=== PATIENT | male | born 1955 | race Caucasian/White ===

== ENCOUNTER 2016-06-10 16:31 | Inpatient (IN) | payer OTHER ==
[~2016-06-10] VITALS: Ht 180.3 cm; Wt 88.4 kg
[2016-06-10] VITALS (8 sets, daily range): BP systolic 109–146; BP diastolic 58–82; PULSE 69–124; RESP 13–20; O2SAT 94–98
[2016-06-10] MEDS ORDERED: Ondansetron 2 mg/mL 2 mL Inj ONE ×2 (17:37→22:37)
[2016-06-10 17:51] LABS: BASOPHILS % (AUTO) 0.2 % (0-3); EOSINOPHILS % (AUTO) 0 % (0-5); MONOCYTES % (AUTO) 6.1 % (4-12); Mean Corpuscular Volume 90.9 fL (81-100); Platelet Count 203 bil/L (150-400)
[2016-06-10 18:12] LABS: Magnesium 1.6 mg/dL (1.6-2.6)
--- NOTE | 2016-06-10 18:30 | ED.REPORT ---
HPI-Abd Pain M 40 and Over Date of Service June 10, 2016 ED Provider: Randell Lux MD A 60 year old male with a history of NIDDM presents to the ED complaining of abdominal pain. The pain has been present for four days and in concentrated in the LLQ. The pt characterizes the pain as a "worsening ache with spasms" that ranges between sharp and dull. He began vomiting after eating yesterday and has not been able to consume anything but water and Gatorade since. He last drank these at 15:00 today. The pt has not had a bowel movement in two days, though he denies dysuria. Nursing Notes Stated Complaint: RIGHT LOWER QUADRANT PAIN Chief Complaint: Male Abdominal Pain Nursing Notes Reviewed: Yes Allergies: Coded Allergies: No Known Allergies (Unverified , 06/10/16) Scheduled Aspirin (Aspirin) 81 Mg Tablet 81 MG PO DAILY Lisinopril (Lisinopril) 5 Mg Tablet 5 MG PO HS Metformin (Metformin) 850 Mg Tablet 850 MG PO BID Multivitamin (Once Daily) 1 Each Tablet 1 EACH PO DAILY Simvastatin (Simvastatin) 40 Mg Tablet 40 MG PO HS Scheduled PRN Cyclobenzaprine (Cyclobenzaprine) 10 Mg Tablet 10 MG PO DAILY PRN PRN For Spasm Sildenafil Citrate (Sildenafil) 20 Mg Tablet 20 MG PO prn PRN PRN for sexual activity General Time Seen by MD: 18:24 Chief Complaint Abdominal pain Hx Obtained From: Patient Arrived By: Walk-in Sudden in Onset?: No Onset Occurred: 4 days ago Symptom Duration: Since onset Recent Healthcare: No recent hospitalization, Recent doctor visit Similar Sx Previous: No Past Medical History Past Medical History NIDDM Past Surgical History none reported denies abdominal surgery Smoking History Current Every Day Smoker Social History Alcohol Use: "Social" Drug Use: THC Other Social History: Good social support, Ambulatory Status Independent Review of Systems Constitutional: Denies: Fever Respiratory: Denies: Non-productive cough Cardiovascular: Denies: Chest pain GI: Reports: Abdominal pain, Constipation, Nausea, Vomiting Male: Denies Dysuria Musculoskeletal: Denies: Back pain, Neck pain Complete sys rev & neg: except as marked. Physical Exam Initial Vital Signs Vital Signs (First) Date Time Temp Pulse Resp B/P Pulse Ox O2 Delivery O2 Flow Rate FiO2 06/10/16 16:42 37.7 124 18 146/82 95 Initial VS: Reviewed General/Constitutional: Awake, Alert Respiratory / Chest: Atraumatic, Breath sounds NL, Breath sounds = bilat, No respiratory distress Cardiovascular: Heart rate NL, Regular rhythm, Heart sounds NL Abdomen: Atraumatic, Soft, Non-tender, BS normoactive Back: Atraumatic, Full range of motion Head / Eyes: Atraumatic, Normocephalic, PERRL, EOMI ENT: Atraumatic, Airway patent, Mucous membranes moist Skin: Atraumatic, Color NL, No rash, Warm, Dry Neurologic: Oriented X3, Speech NL, No motor deficits, No sensory deficits Neck: Atraumatic, Supple, Full range of motion Upper Extremity / MS: Atraumatic, Full range of motion Lower Extremity / Pelvis / MS: Atraumatic, Full range of motion Psychiatric: Affect NL, Mood NL Interpretation & Diagnostics Interpretation & Diagnostics: Abdomen CT: IMPRESSION: 1. Severe acute appendicitis, possibly ruptured given the surrounding fluid. Findings discussed with Dr. Lux on 06.10.16 at 1910 hrs. 2. Mildly distended small bowel loops, consistent with ileus. Dictated by: Zoie Jarrell M.D. on 06/10/2016 at 19:10 Approved by: Zoie Jarrell M.D. on 06/10/2016 at 19:13 Lab Results Interpretation Result Diagram: 06/10/16 1723 06/10/16 1723 Test 06/10/16 17:23 06/10/16 17:41 06/10/16 18:35 White Blood Count 19.8th/mm3 (3.8-10.1) Red Blood Count 5.06mil/mm3 (4.40-5.80) Hemoglobin 15.7g/dL (13.8-17.2) Hematocrit 46.0% (41.0-50.0) Mean Corpuscular Volume 90.9fL (81-100) Mean Corpuscular Hemoglobin 31.0pg (27.0-35.0) Mean Corpuscular Hemoglobin Concent 34.1% (32.0-37.0) Red Cell Distribution Width 12.1% (12.3-15.4) Platelet Count 203bil/L (150-400) Neutrophils (%) (Auto) 91.0% (40-74) Lymphocytes (%) (Auto) 2.2% (14-46) Monocytes (%) (Auto) 6.1% (4-12) Eosinophils (%) (Auto) 0% (0-5) Basophils (%) (Auto) 0.2% (0-3) Hold Purple Top Tube Received (Received) Hold Blue Top Tube Received (Received) Sodium Level 135mEq/L (134-144) Potassium Level 3.8mEq/L (3.5-5.2) Chloride Level 94mEq/L (97-108) Carbon Dioxide Level 22mmol/L (18-29) Blood Urea Nitrogen 16mg/dL (6-24) Creatinine 0.89mg/dL (0.76-1.27) Estimat Glomerular Filtration Rate 93mL/min (>59) Glucose Level 237mg/dL (60-99) Lactic Acid Level 1.8mmol/L (0.4-2.0) Calcium Level 9.5mg/dL (8.5-10.1) Magnesium Level 1.6mg/dL (1.6-2.6) Total Bilirubin 1.0mg/dL (0.0-1.2) Aspartate Amino Transf (AST/SGOT) 15U/L (0-50) Alanine Aminotransferase (ALT/SGPT) 17U/L (0-44) Alkaline Phosphatase 48U/L (25-150) Total Protein 7.5g/dL (6.4-8.4) Albumin 4.0g/dL (3.4-5.0) Lipase 15U/L (13-60) Hold Red Top Tube Received (Received) Hold [place] Top Tube Received (Received) Hold [place] Top Tube Received (Received) Hold Urine Received (Received) Urine Color Yellow (YELLOW) Urine Appearance Clear (CLEAR,HAZY) Urine pH 6.0 (5.0-8.0) Urine Specific [place] 1.030 (1.003-1.035) Urine Protein 300mg/dL (NEG,TRACE) Urine Glucose (UA) 100mg/dL (NEGATIVE) Urine Ketones 40mg/dL (NEGATIVE) Urine Occult Blood Moderate (NEGATIVE) Urine Nitrite Negative (NEGATIVE) Urine Bilirubin Negative (NEGATIVE) Urine Urobilinogen 1.0mg/dL (NORMAL) Urine Leukocyte Esterase Negative (NEGATIVE) Urine RBC 0-2/hpf (0-2) Urine WBC 0-5/hpf (0-5) Urine Epithelial Cells Few/hpf (NONE-MOD) Urine Crystals None seen (NONE SEEN) Urine Bacteria Few/hpf (NONE-FEW) Urine Hyaline Casts None/lpf (NONE) Urine Granular Casts None seen (NONE SEEN) Urine Waxy Casts None seen (NONE SEEN) Urine Red Blood Cell Casts None seen (NONE SEEN) Urine White Blood Cell Casts None seen (NONE SEEN) Urine Mucus Present (None Seen) Urine Trichomonas None seen (NONE SEEN) Urine Yeast None (NONE SEEN) Urinalysis Comment None Urine Culture Reflexed Not indicated Re-Eval/Medical Decision Med Decision/Clinical Course Presented ill appearing with peritoneal findings on exam. IV NSx2L, IV zosyn started, surgery consulted. Source of Hx: Old records Time of Eval: 19:16 Patient Status: Condition improved Re-Evaluation/Progress Note: Pt rechecked, whose pain has improved. Radiology results and diagnosis are discussed, as well as the need for admission for surgery. The pt understands and agrees with the plan. All questions are addressed at this time. Consultation : Referral / Consult Name: David Escudero MD Consulted With: Surgeon Call Returned at: 19:10 Bakery Clerk: Agrees with eval, Agrees with plan Note: Spoke with Dr. Escudero, surgeon, regarding pt's case. Dr. Escudero agrees with the evaluation and agrees to admit the pt for surgery. Counseled Regarding: Diagnosis, Lab results, Need for admission Discharge & Departure Primary Impression: Acute appendicitis Acute appendicitis type: unspecified acute appendicitis type Qualified Code: K35.80 - Unspecified acute appendicitis Additional Impression: Sepsis Sepsis type: sepsis due to unspecified organism Qualified Code: A41.9 - Sepsis, unspecified organism Disposition: ADMITTED TO HOSPITAL Vital Signs - All Vital Signs Date Time Temp Pulse Resp B/P Pulse Ox O2 Delivery O2 Flow Rate FiO2 06/10/16 16:42 37.7 124 18 146/82 95 )( All Prior VS Reviewed: Yes Condition: Stable Referrals: Ayden Kirkland DO (PCP) Brandieibjorge Attestation Portions of this note were transcribed by William Avilez. I, Dr. Lux personally performed the history, physical exam and medical decision-making; I reviewed and confirmed the accuracy of the information in the transcribed note. Signed by: Bita Shields, 06/10/16 and 4. copies to: Ayden Kirkland, Randell Greene MD June 10, 2016 18:30 WILLIAM AVILEZ June 10, 2016 18:38
[2016-06-10] MEDS ORDERED: 0.9% Sodium Chloride 1,000 ML IV ONE (18:35)
[2016-06-10] MEDS ORDERED: Ondansetron 2 mg/mL 2 mL Inj IVPUSH PRN ×2 (18:35→19:35)
[2016-06-10] MEDS ORDERED: HYDROmorphone 0.5 mg/0.5 mL iSecure Syringe IVPUSH PRN (18:35)
[2016-06-10 18:52] LABS: APPEARANCE,URINE CLEAR (CLEAR,HAZY); COLOR,URINE YELLOW (YELLOW); OCCULT BLOOD,URINE MODERATE (NEGATIVE)
--- NOTE | 2016-06-10 19:14 | DRSVH ---
PROCEDURE: CT ABDOMEN AND PELVIS WITH CONTRAST ([id number]) INDICATIONS: rlq pain TECHNIQUE: After the administration of intravenous contrast, 5 mm thick sections acquired from the diaphragm to the symphysis. 5 mm coronal and sagittal reformats were acquired. For radiation dose reduction, the following was used: automated exposure control, adjustment of mA and/or kV according to patient siz e. COMPARISON: None. FINDINGS: Image quality: Excellent. ABDOMEN: Lung bases: Lung bases are clear. Heart size is normal. Solid organs: Liver and spleen are normal in size and enhancement. Gallbladder is within normal magana its. Biliary system is non dilated. Pancreas enhances normally. No adrenal nodules. Kidneys demon strate normal size and enhancement, without hydronephrosis. Peritoneum and bowel: Mildly distended small bowel loops are present within the left hemiabdomen. Prosper wel loops demonstrate otherwise normal wall thickness and caliber. The appendix is distended and flui d filled. Appendicolith is present at the appendiceal base. Severe fatty stranding and small amount o f fluid surrounds the appendix. Small amount of fluid within the right perirenal space. Nodes and vessels: No retroperitoneal or mesenteric adenopathy by size criteria. Aorta and inferior vena cava are normal in size. Miscellaneous: No ventral hernias. PELVIS: Genitourinary: Bladder wall thickness is normal. Miscellaneous: No inguinal hernias or adenopathy. Bones: No suspicious bony lesions. No vertebral body compression fractures. IMPRESSION: 1. Severe acute appendicitis, possibly ruptured given the surrounding fluid. Findings discussed with Dr. Lux on 06.10.16 at 1910 hrs. 2. Mildly distended small bowel loops, consistent with ileus. Dictated by: Zoie Jarrell M.D. on 06/10/2016 at 19:10 Approved by: Zoie Jarrell M.D. on 06/10/2016 at 19:13
[2016-06-10] MEDS ORDERED: Piperacillin-Tazo 3.375 Gm Inj 3.375 GM in Dextrose 5% Minibag Plus 50 ML IV ONE (19:15)
[2016-06-10] MEDS ORDERED: Lactated Ringer's 1,000 ML IV SCH (19:33)
[2016-06-10] MEDS ORDERED: Lactated Ringer's 500 ML IV PRN (19:33)
[2016-06-10] MEDS ORDERED: fentaNYL-PF 50 mCg/mL 2 mL Inj IVPUSH PRN (19:35)
[2016-06-10] MEDS ORDERED: Labetalol 5 mg/mL 4 mL Inj IV PRN (19:35)
[2016-06-10] MEDS ORDERED: hydrALAZINE 20 mg/mL Inj IVPUSH PRN (19:35)
[2016-06-10] MEDS ORDERED: HYDROmorphone 1 mg/mL Inj IVPUSH PRN (19:35)
[2016-06-10] MEDS ORDERED: MetoCLOpramide 5 mg/mL 2 mL Inj IVPUSH PRN (19:35)
[2016-06-10] MEDS ORDERED: Dexamethasone 4 mg/mL Inj IVPUSH PRN (19:35)
[2016-06-10] MEDS ORDERED: Phenylephrine 10,000 mCg/mL Inj IVPUSH PRN (19:35)
[2016-06-10] MEDS ORDERED: EPHEDrine Sulfate 50 mg/mL Inj IVPUSH PRN (19:35)
--- NOTE | 2016-06-10 20:10 | PCM.HPSURG ---
Subjective Date of Service: June 10, 2016 Referring Provider: Admitting Physician: Primary Care Physician: Ayden Kirkland DO Attending Physician: Chief Complaint Appendicitis with possible perforation History of Present Illness Mr. Carvalho is a 60-year-old male with past medical history NIDDM, HTN and HLD presented to the ED via POV secondary to 4 days of progressive right lower quadrant abdominal pain with associated nausea vomiting fevers. Symptoms started 4 days ago with no specific inciting incident, progressively worsened with increasing fevers nausea and projectile vomiting for the last 2 days, denies hematemesis. Patient states last bowel movement 2 days prior to admission and was normal no hematochezia. He has not been able to eat food 2 days and last liquid intake was approximately 1500 today water and Gatorade. Denies chest pain, shortness of breath, headache. A comprehensive review of systems was conducted with the patient and found to be negative except as above in the history of present illness. In the ED: WBC 19.8 - 91% neutrophils, lactic acid 1.8, glucose 237. Temperature 37.7, tachycardic 124 blood pressure 146/[address]: Severe acute appendicitis, possibly ruptured given the surrounding fluid. Mildly distended small bowel loops, consistent with ileus. Past medical history: NIDDM, HTN and HLD. Chronic low back pain Past surgical history: Denies any pertinent surgery history. Has never been intubated, has never undergone anesthesia has never had any surgeries. Allergies: No known drug allergies Medications: Aspirin 81 mg, lisinopril - unknown dose, statin - unknown dose, metformin 850 mg twice a day Family history: Grandfather "10 heart attacks", father 4 way bypass age 74 secondary to MS, mother alive and mostly healthy with pacemaker. No family history of colon cancer. Social history: Smokes one cigar per week, EtOH 2-3 beers per week, daily marijuana use. Lives in town [place] with , one grown child currently traveling in [place]. Works as a marketing project specialist. Allergy Allergies: Coded Allergies: No Known Allergies (Unverified , 06/10/16) Social History Hx Alcohol Use: Yes Alcoholic Drinks Per Day: 1 weekly Hx Substance Use: Yes (thc occasionally) PMH Other History Diabetes: Yes (NIDDM) Social History Hx Alcohol Use: YesAlcoholic Drinks Per Day: 1 weeklyHx Substance Use: Yes ( thc occasionally) Smoking Status: Current Every Day Smoker H&P Surgical Exam Exam Diagnostics: . CT ABDOMEN AND PELVIS WITH CONTRAST IMPRESSION: 1. Severe acute appendicitis, possibly ruptured given the surrounding fluid. Findings discussed with Dr. Lux on 06.10.16 at 1910 hrs. 2. Mildly distended small bowel loops, consistent with ileus. Dictated by: Zoie Jarrell M.D. on 06/10/2016 at 19:10 Additional Information: General: Age-appropriate adult male laying in ER bed in moderate distress, well- developed, well-nourished, appropriately interactive. at bedside HEENT: Normocephalic, atraumatic. External ears without defect. Pupils equal, round, and reactive to light and accommodation. Anicteric sclerae, moist conjunctivae, and no lid lag. Neck: Supple with full range of motion. No jugular venous distension. Cardiovascular: Regular rate and rhythm with no murmurs, rubs, or gallops appreciated Pulmonary: Clear to auscultation bilaterally with no crackles, wheezes, or rhonchi. Normal respiratory effort with no use of accessory muscles. Abdomen: Bowel tones present. Tender to palpation right lower quadrant, positive rebound tenderness. Right lower quadrant firm to palpation. Extremities: No edema appreciated. Skin: Normal temperature, turgor, and texture Neurological: Cranial nerves grossly intact. Psychiatric: Normal mood and affect. Alert and oriented to person, place, and time. Assessment & Plan Assessment Assessment & Plan Appendicitis with possible perforation - CT imaging confirms appendicitis with suspicion of rupture secondary to surrounding fluid - Leukocytosis, hyperthermia - IV fluids - Zosyn given in ED - Patient consented to laparoscopic appendectomy Resuscitation Status: CPR: Attempt Resuscitation Attending Statement: I personally interviewed and examined the pt, and I agree with Dr. Alex's assessment and plan. IV abx and proceed to lap appendectomy. LATOYA ALEX DO June 10, 2016 20:10 David Escudero MD June 12, 2016 14:31
[2016-06-10] MEDS ORDERED: SIMV40TA5 PO (20:22)
[2016-06-10] MEDS ORDERED: LISI-571 PO (20:22)
[2016-06-10] MEDS ORDERED: CYCL10TA9 PO (20:22)
[2016-06-10] MEDS ORDERED: MULT-666 PO (20:22)
[2016-06-10] MEDS ORDERED: ASPI-973 PO (20:22)
[2016-06-10] MEDS ORDERED: SILD20TA14 PO (20:22)
[2016-06-10] MEDS ORDERED: METF850T2 PO (20:22)
[2016-06-10] MEDS ORDERED: Lactated Ringer's 1,000 ML IV ONE ×2 (20:46→21:32)
[2016-06-10] MEDS ORDERED: Bupivacaine-MPF 0.25%/EPI 30 mL Inj INJ ONE (20:47)
--- NOTE | 2016-06-10 20:47 | PCM.HPANE ---
Patient Data Date of Service: June 10, 2016 Surgeon Admitting Provider: Attending Provider: Primary Care Physician:Ayden Kirkland DO Other Provider: Reason for Visit Right Lower Quadrant Pain Ht/WT & BMI Height (Feet): 5 Height (Inches): 11 Weight (Kilograms): 86.36 Body Mass Index Allergies Coded Allergies: No Known Allergies (Unverified , 06/10/16) Past Anesthesia History Anesthesia History: Denies:: Abnormal Airway, Anesthesia Reactions, Difficult Intubation, Fam Anesthesia Reaction, Fam Malignant Hypertherm, Malignant Hyperthermia Diabetes History Hx Diabetes?: Yes (NIDDM) Medications Reported Medications Sildenafil Citrate (Sildenafil)20 Mg [id number] Mg PO prn PRN for sexual activity 06/10/16 Simvastatin 40 Mg [id number] Mg PO HS #30 06/10/16 Multivitamin (Once Daily)1 Each Tablet1 Each PO DAILY 06/10/16 Metformin 850 Mg [id number] Mg PO BID #60 06/10/16 Lisinopril 5 Mg Tablet5 Mg PO HS #30 06/10/16 Cyclobenzaprine 10 Mg [id number] Mg PO DAILY PRN For Spasm #30 06/10/16 Aspirin 81 Mg [id number] Mg PO DAILY Ref 0 06/10/16 History History of ENT Problems?: No HEENT History: Denies:: Abnormal Airway Cataracts Difficult Intubation Dysphagia Glaucoma Hearing Problem Sinus Problem TMJ Denture Type: None Teeth Condition: Within Normal Limits Hx of Heart Problems?: No Cardiovascular History: Denies:: AICD Abdominal Aortic Aneurism Atrial Fibrillation Cardiac Surgery Chest Pain Congestive Heart Failure Coronary Artery Disease Edema Heart Murmur Hypertension Irregular Heartbeat Pacemaker Peripheral Vascular Rheumatic Fever Thrombophlebitis Valvular Heart Disease Hx of Respiratory Problem?: No Respiratory History: Denies:: Asthma COPD Chest Surgery Cough Dyspnea Emphysema Hemoptysis Oxygen Administration Pneumonia Pulmonary Embolism Tuberculosis Use of C-PAP Machine Use of Inhalers / NEBS Hx Neurologic Problems?: No Hx of GI Problems?: No Hx of Problems?: No Hx Musculoskeletal Problems?: No Hx of Psycho/Social Problems?: No Psycho Social History: Denies:: Anxiety Hx Depression Suicide Attempt Hx Surgeries?: No Hx Any Other Health Problems?: No Hx Diabetes: Yes (NIDDM) Hx Alcohol Use: YesAlcoholic Drinks Per Day: 1 weeklyHx Substance Use: Yes ( thc occasionally) Smoking Status: Current Every Day Smoker Have You Smoked inLast 12 mo: YesApprox How Many Cigarettes/day: cigar Stop/Bang Treated for Sleep Apnea?: No Do You Have a CPAP Machine?: No S-Snoring: Do You Snore Loudly: No T-Tired: feel tired, fatigued: No O-Obsered: Observed not breath: No P-Blood Pressure: treated: No B- Body Mass Index > 35 kg/m2: No A- Age over 50: Yes N- Neck Large Circumference: No G- Gender Male: Yes KYLE Risk Assessment: Low Risk, <3 Yes Risk Assessment Category Category 1A: Patient has history of documented sleep apnea, and HAS NOT received any narcotic, sedative or anesthesia administration during this stay. Category 1B: Patient has history of documented sleep apnea, and HAS received any narcotic , sedative or anesthesia administration during this stay Category 2: Patient has SUSPECTED Obstructive Sleep Apnea, and HAS received any narcotic , sedative or anesthesia administration during this stay. Category 3: Patient has SUSPECTED Obstructive Sleep Apnea and HAS NOT received narcotic, sedative or anesthesia administration during this stay. Category 4: Outpatient in Procedural Areas with known sleep apnea or who screen positive for High Risk via the STOP/BANG questionnaire. Exam Exam Vital Signs Vital Signs Date Time Temp Pulse Resp B/P Pulse Ox O2 Delivery O2 Flow Rate FiO2 06/10/16 16:42 37.7 124 18 146/82 95 General Appearance: Alert, Oriented X3, Cooperative, No Acute Distress HEENT/AIRWAY: MP 1 Lungs: Clear to Auscultation, Normal Air Movement Heart: Exam Unremarkable, Regular Rate/Rhythm, No Murmurs/Rubs/Gallops Meds/Labs/Diagnostics Admission Meds Current Medications Sodium Chloride (Normal Saline) 1,000 ml @ 0 mls/hr Q0M ONCE IV Last administered on 06/10/16t 18:35; Start 06/10/16 at 18:35; Stop 06/10/16 at 18:36; Status DC Labs Test 06/10/16 17:23 06/10/16 17:41 06/10/16 18:35 White Blood Count 19.8th/mm3 (3.8-10.1) Red Blood Count 5.06mil/mm3 (4.40-5.80) Hemoglobin 15.7g/dL (13.8-17.2) Hematocrit 46.0% (41.0-50.0) Mean Corpuscular Volume 90.9fL (81-100) Mean Corpuscular Hemoglobin 31.0pg (27.0-35.0) Mean Corpuscular Hemoglobin Concent 34.1% (32.0-37.0) Red Cell Distribution Width 12.1% (12.3-15.4) Platelet Count 203bil/L (150-400) Neutrophils (%) (Auto) 91.0% (40-74) Lymphocytes (%) (Auto) 2.2% (14-46) Monocytes (%) (Auto) 6.1% (4-12) Eosinophils (%) (Auto) 0% (0-5) Basophils (%) (Auto) 0.2% (0-3) Hold Purple Top Tube Received (Received) Hold Blue Top Tube Received (Received) Sodium Level 135mEq/L (134-144) Potassium Level 3.8mEq/L (3.5-5.2) Chloride Level 94mEq/L (97-108) Carbon Dioxide Level 22mmol/L (18-29) Blood Urea Nitrogen 16mg/dL (6-24) Creatinine 0.89mg/dL (0.76-1.27) Estimat Glomerular Filtration Rate 93mL/min (>59) Glucose Level 237mg/dL (60-99) Lactic Acid Level 1.8mmol/L (0.4-2.0) Calcium Level 9.5mg/dL (8.5-10.1) Magnesium Level 1.6mg/dL (1.6-2.6) Total Bilirubin 1.0mg/dL (0.0-1.2) Aspartate Amino Transf (AST/SGOT) 15U/L (0-50) Alanine Aminotransferase (ALT/SGPT) 17U/L (0-44) Alkaline Phosphatase 48U/L (25-150) Total Protein 7.5g/dL (6.4-8.4) Albumin 4.0g/dL (3.4-5.0) Lipase 15U/L (13-60) Hold Red Top Tube Received (Received) Hold [place] Top Tube Received (Received) Hold [place] Top Tube Received (Received) Hold Urine Received (Received) Urine Color Yellow (YELLOW) Urine Appearance Clear (CLEAR,HAZY) Urine pH 6.0 (5.0-8.0) Urine Specific [place] 1.030 (1.003-1.035) Urine Protein 300mg/dL (NEG,TRACE) Urine Glucose (UA) 100mg/dL (NEGATIVE) Urine Ketones 40mg/dL (NEGATIVE) Urine Occult Blood Moderate (NEGATIVE) Urine Nitrite Negative (NEGATIVE) Urine Bilirubin Negative (NEGATIVE) Urine Urobilinogen 1.0mg/dL (NORMAL) Urine Leukocyte Esterase Negative (NEGATIVE) Urine RBC 0-2/hpf (0-2) Urine WBC 0-5/hpf (0-5) Urine Epithelial Cells Few/hpf (NONE-MOD) Urine Crystals None seen (NONE SEEN) Urine Bacteria Few/hpf (NONE-FEW) Urine Hyaline Casts None/lpf (NONE) Urine Granular Casts None seen (NONE SEEN) Urine Waxy Casts None seen (NONE SEEN) Urine Red Blood Cell Casts None seen (NONE SEEN) Urine White Blood Cell Casts None seen (NONE SEEN) Urine Mucus Present (None Seen) Urine Trichomonas None seen (NONE SEEN) Urine Yeast None (NONE SEEN) Urinalysis Comment None Urine Culture Reflexed Not indicated Plan Impression Patient chart reviewed, patient interviewed and anesthestic plan with risks, benefits, and alternatives discussed, and informed consent obtained. ASA Physical Status: ASA2 Mod Systemic Disease Anesthetic Plan: GA Bene/Risks/Altern/Consents: Yes HP Complete Prior to Induction: Yes Abhishek Olson MD June 10, 2016 20:47
[2016-06-10] MEDS ORDERED: Sodium Chloride LOK Flush 10 mL Syringe IVFLUSH PRN (21:50)
--- NOTE | 2016-06-10 22:13 | PCM.ANEP1 ---
Post Anesthesia Phase 1 PACU Phase 1 Assessment Date of Service: June 10, 2016 Vital Signs Vital Signs Date Time Temp Pulse Resp B/P Pulse Ox O2 Delivery O2 Flow Rate FiO2 06/10/16 22:10 37.2 87 16 109/73 96 Nasal Cannula 3 06/10/16 22:05 88 16 116/66 94 Nasal Cannula 3 06/10/16 22:00 87 16 110/67 98 Simple Mask 8 06/10/16 21:55 38. 82 17 120/64 98 Simple Mask 8 06/10/16 16:42 37.7 124 18 146/82 95 Anesthetic Administered: GA Level of Alertness: Sleeping, hard to arouse Pain: No Pain Scale Score: 9 Nausea or Vomiting: No Airway Device: Oralpharangeal Airway Oxygen Delivery: Simple Mask Lungs: Clear to Auscultation, Normal Air Movement Complications: Abhishek Tucker MD June 10, 2016 22:13
[2016-06-10] MEDS ORDERED: fentaNYL-PF 50 mCg/mL 2 mL Inj ONE (22:37)
[2016-06-10] MEDS ORDERED: HYDROmorphone 2 mg/mL Inj ONE (22:37)
[2016-06-10] MEDS ORDERED: Neostigmine 1 mg/mL 10 mL Inj ONE (22:37)
[2016-06-10] MEDS ORDERED: Ketamine 10 mg/mL 20 mL Inj ONE (22:37)
[2016-06-10] MEDS ORDERED: MeTOProlol 1 mg/mL 5 mL Inj ONE (22:37)
[2016-06-10] MEDS ORDERED: Glycopyrrolate 0.2 MG/ML 1mL Inj ONE (22:37)
[2016-06-10] MEDS ORDERED: Propofol 10,000 mCg/mL 20 mL Inj ONE (22:37)
[2016-06-10] MEDS ORDERED: Esmolol 10,000 mCg/mL 10 mL Inj ONE (22:37)
[2016-06-10] MEDS ORDERED: Succinylcholine Chloride 20 mg/mL 5 mL Inj ONE (22:37)
[2016-06-10] MEDS ORDERED: Dexamethasone 4 mg/mL Inj ONE (22:37)
--- NOTE | 2016-06-10 23:43 | OP ---
[address] [address] OPERATIVE REPORT PATIENT: ANTONIETA MADDEN : 1955 MR#: [id number] ADMIT: 06/10/2016 JOB ID: [id number] DATE OF SURGERY: 06/10/2016 PREOPERATIVE DIAGNOSIS(ES): Acute appendicitis, possible rupture. POSTOPERATIVE DIAGNOSIS(ES): Gangrenous appendicitis. PRINCIPAL PROCEDURE: Laparoscopic appendectomy. SURGEON: David Escudero MD PICTURE COPYIST: Luke Read PA-C, and also Kaiser Alex, Resident 1. ANESTHESIA: General. INDICATION FOR PROCEDURE: The patient is a 60-year-old male with a 4-day history of abdominal pain and an elevated white blood count, and a CT scan finding was consistent with acute appendicitis with possible rupture. OPERATIVE FINDING: Principal finding is there is no gross purulence found within the abdomen. There was a very localized gangrenous appendicitis with possible perforation. Successful laparoscopic appendectomy. A Jos-Arevalo drain was left in place. Assistance from a surgical PA was critical in completion of the case. PROCEDURE COURSE: The patient was brought to the operating table and was provided with general anesthesia. The patient had received IV antibiotics and he was given SCDs. A time-out was performed. The patient's abdomen was then prepped and draped in the usual sterile fashion. Next, local anesthetic was injected into the left upper quadrant location and a 5 mm stab incision was made. A Veress needle was used to establish a pneumoperitoneum. Next, a 5 mm trocar was then placed and the laparoscope was introduced. A second 5 mm trocar was then placed in the left lateral abdomen and a 12 mm trocar was then placed in the left lower quadrant. During the case, a right-sided 5 mm trocar was also placed to help with retraction. There was no gross purulence noted within the abdomen. The appendix was found stuck in a retroperitoneal fashion, with signs of gangrene. I was able to detach the appendix off of the retroperitoneum and I was able to find the tip of the appendix. The mesoappendix was taken and it definitely showed a gangrenous appendicitis with possible rupture because during the case we had come across several little stool balls. The base of the appendix was identified and it was amputated using an endoscopic stapler. The gangrenous appendix was then placed into the EndoCatch bag and removed from the patient. Copious irrigation of the right lower quadrant and of the pelvis was carried out. There were no signs of arterial bleeding at the end of the case. The staple line on the cecum was intact. Given the gangrenous nature of the appendix, we decided to place a drain. A 19-Taiwanese Jos-Arevalo drain was placed through the right-sided trocar into the right lower quadrant and ended up in the pelvis. This was secured to the skin using a nylon suture. It was connected to a bulb suction device. Next, we turned our attention to the left lower quadrant trocar site. The fascia was reapproximated using 0 Vicryl suture using the Endoclose device. Next, CO2 was allowed to escape and all the trocars were then removed from the patient. Skin edges were then reapproximated using absorbable sutures. Steri-Strips and sterile dressing were then placed over each wound. By the end of procedure, needle counts and sponge counts were correct. The patient was then extubated and taken to the recovery room in stable satisfactory condition. YARELI
[2016-06-11 00:56] VITALS: PULSE 59
[2016-06-11] MEDS: Lactated Ringer's 1,000 ML IV SCH ×3 (02:17→18:30)
[2016-06-11] MEDS: Piperacillin-Tazo 3.375 Gm Inj 3.375 GM in Dextrose 5% Minibag Plus 50 ML IV SCH ×3 (03:17→18:49)
[2016-06-11 04:05] VITALS: BP 109/66; PULSE 65; RESP 20; O2SAT 99
[2016-06-11 05:38] LABS: Mean Corpuscular Volume 92.5 fL (81-100)
--- NOTE | 2016-06-11 06:06 | PCM.PNSURG ---
Subjective Visit Information: Reason for Visit Acute Appendicitis/Sepsis Surgery/Surgery Date Post-Op Day # Date of Admission: June 10, 2016 at 22:36 Hospital Day # Subjective: no n/v overnight, not much pain on L side, still a little sore RLQ, passed some flatus Objective Objective Arousable in bed Abd: dressings intact, KAITLYNN --> serosang fluid Vital Sign- Last 8 Hours Date Time Temp Pulse Resp B/P Pulse Ox O2 Delivery O2 Flow Rate FiO2 06/11/16 04:05 36.3 65 20 109/66 99 Nasal Cannula 2.00 06/11/16 03:54 Supplement Oxygen 06/11/16 00:56 59 06/10/16 22:39 36.8 69 20 109/65 95 Room Air 06/10/16 22:20 81 16 118/58 96 Nasal Cannula 3 06/10/16 22:15 82 13 110/62 96 Nasal Cannula 3 06/10/16 22:13 Simple Mask 06/10/16 22:10 37.2 87 16 109/73 96 Nasal Cannula 3 06/10/16 22:05 88 16 116/66 94 Nasal Cannula 3 Intake and Output- Last 8 Hour 06/11/16 Cumulative From/Thru 07:00 06/10/16 16:42 - 06/11/16 05:58 Intake Total 0 ml 2100 ml Output Total 10 ml 10 ml Balance -10 ml 2090 ml Intake Oral 0 ml 0 ml IV Total 2100 ml Output Urine Total 0 ml 0 ml Drainage Total 10 ml 10 ml Result Diagram: 06/11/16 0514 06/10/16 1723 Assessment & Plan Impression POD #1 s/p lap appy for gangrenous appendicitis Still elevated WBC Problems: Plan Continue abx and KAITLYNN drain Start clears Incentive spirometer OOB/ambulate Resuscitation Status: CPR: Attempt Resuscitation David Escudero MD June 11, 2016 06:06
[2016-06-11 08:07] VITALS: BP 122/74; PULSE 73; RESP 15; O2SAT 97
[2016-06-11] MEDS: HYDROcodone-APAP 5-325 mg Tablet PO PRN ×3 (09:01→17:12)
[2016-06-11 09:25] VITALS: PULSE 64
[2016-06-11] MEDS ORDERED: 0.9% Sodium Chloride 250 ML ONE (11:05)
[2016-06-11 17:21] VITALS: BP 150/71; PULSE 77; RESP 17; O2SAT 97
[2016-06-11] MEDS: HYDROmorphone 1 mg/mL Inj IVPUSH PRN (18:46)
[2016-06-11 19:52] VITALS: BP 164/89; PULSE 89; RESP 20; O2SAT 96
[2016-06-12] MEDS: Lactated Ringer's 1,000 ML IV SCH ×3 (02:50→19:30)
[2016-06-12] MEDS: HYDROcodone-APAP 5-325 mg Tablet PO PRN ×4 (03:06→19:56)
[2016-06-12 04:38] VITALS: BP 151/88; PULSE 74; RESP 18; O2SAT 97
[2016-06-12 07:31] LABS: BASOPHILS % (AUTO) 0.1 % (0-3); EOSINOPHILS % (AUTO) 0 % (0-5); MONOCYTES % (AUTO) 6.6 % (4-12); Mean Corpuscular Hemoglobin 31.4 pg (27.0-35.0); Mean Corpuscular Volume 92.6 fL (81-100); NEUTROPHILS % (AUTO) 87.8 % (40-74); Platelet Count 182 bil/L (150-400)
[2016-06-12] MEDS: Piperacillin-Tazo 3.375 Gm Inj 3.375 GM in Dextrose 5% Minibag Plus 50 ML IV SCH ×2 (10:02→17:06)
--- NOTE | 2016-06-12 10:51 | PCM.PNSURG ---
Subjective Date of Service: June 12, 2016 Visit Information: Reason for Visit Acute Appendicitis/Sepsis Surgery/Surgery Date Post-Op Day #2 Date of Admission: June 10, 2016 at 22:36 Hospital Day # Subjective: Continues to have night sweats as well as sweats during the day. Pain well controlled with oral analgesic and intermittent IV Dilaudid for breakthrough pain. Greatly relieved after with the patient relates to as an experience of 12 hours of pickups. Passing flatus but has not had a bowel movement. Denies nausea or vomiting. Ambulatory in the hallway. Drinking liquids and requesting more to eat. Postop General: Other (as above) Gastrointestinal: Good Appetite, No N/V, Passing Flatus Pain Management: PO, IV Push (for breakthrough pain) Postop Activity: Ambulating Independently Objective Vital Sign- Last 8 Hours Date Time Temp Pulse Resp B/P Pulse Ox O2 Delivery O2 Flow Rate FiO2 06/12/16 04:38 36.9 74 18 151/88 97 Nasal Cannula 2.00 Intake and Output- Last 8 Hour 06/12/16 Cumulative From/Thru 07:00 06/10/16 16:42 - 06/12/16 06:29 Intake Total 300 ml 3594 ml Output Total 415 ml 1355 ml Balance -115 ml 2239 ml Intake Oral 300 ml 1020 ml IV Total 2574 ml Output Urine Total 400 ml 1310 ml Drainage Total 15 ml 45 ml # Bowel Movements 0 0 General: Alert, Cooperative, No Acute Distress, Other (diaphoretic) Lungs: Clear to Auscultation Heart: Regular Rate/Rhythm, No Murmurs/Rubs/Gallops Abdomen: Soft, Non-tender, Non-distended SURGICAL WOUND : Wound General Appearence: Steri Strips, Sutures, Intact, Well Approximated, No Erythema, No Discharge Wound Drainage Type: KAITLYNN Drain #1 (15 mL of serosanguineous output over the last 8 hours) Extremities: Thigh&Calf Soft/Nontender Neuro: Normal Speech Catheters: None (voiding without difficulty) Result Diagram: 06/12/16 0633 06/10/16 1239 Assessment & Plan Impression Primary diagnosis: Gangrenous appendicitis. POD #2 continuing to have sweats and a leukocytosis. Zosyn was restarted, it had been discontinued yesterday evening Other chronic conditions: 1. Enf-uicglyz-ikbcvxfbf diabetes mellitus 2. Daily cigarette smoker Problems: Plan 1. Advance to full liquid diet 2. MiraLAX 3. CBC in the morning 4. Zosyn every 8 hours 5. June shower Pain Management: Oral analgesic VTE Prophylaxis: SCDs Resuscitation Status: CPR: Attempt Resuscitation James Marie PA-C June 12, 2016 10:51
[2016-06-12 11:23] VITALS: BP 166/89; PULSE 78; RESP 19; O2SAT 95
[2016-06-12] MEDS: Polyethylene Glycol (PEG) 17 Gm Powder PO SCH (11:30)
[2016-06-12] MEDS: HYDROmorphone 1 mg/mL Inj IVPUSH PRN ×2 (14:09→18:27)
[2016-06-12 17:11] VITALS: BP 162/88; PULSE 83; RESP 17; O2SAT 95
[2016-06-12 19:37] VITALS: BP 171/81; PULSE 80; RESP 18; O2SAT 96
[2016-06-12 19:55] VITALS: BP 133/76; PULSE 104; RESP 16
[2016-06-13] MEDS: Piperacillin-Tazo 3.375 Gm Inj 3.375 GM in Dextrose 5% Minibag Plus 50 ML IV SCH ×3 (01:11→16:25)
[2016-06-13] MEDS: HYDROcodone-APAP 5-325 mg Tablet PO PRN ×6 (01:15→22:37)
[2016-06-13] MEDS: Lactated Ringer's 1,000 ML IV SCH (03:50)
[2016-06-13 04:40] VITALS: BP 146/85; PULSE 82; RESP 18; O2SAT 97
[2016-06-13 05:24] LABS: BASOPHILS % (AUTO) 0.2 % (0-3); EOSINOPHILS % (AUTO) 0.2 % (0-5); MONOCYTES % (AUTO) 5.9 % (4-12); Mean Corpuscular Hemoglobin 31.4 pg (27.0-35.0); Mean Corpuscular Volume 93.2 fL (81-100); NEUTROPHILS % (AUTO) 86.1 % (40-74); Platelet Count 238 bil/L (150-400)
--- NOTE | 2016-06-13 07:49 | PCM.PNSURG ---
Subjective Date of Service: June 13, 2016 Date of Service: June 13, 2016 Visit Information: Reason for Visit Acute Appendicitis/Sepsis Surgery/Surgery Date Post-Op Day # Date of Admission: June 10, 2016 at 22:36 Hospital Day # Subjective: Attending Physician: Dr. Escudero. Resident, Physician Dr. Mae States that he is still diaphoretic, mostly at night. Pain is well controlled with oral pain meds. He is ambulatory, passing gas but has not had a bowel movement as of yet. Denies N/V, CP or SOB. Drinking liquids without difficulty. Postop General: No Complaints Gastrointestinal: Good Appetite, No N/V, Passing Flatus Pain Management: PO Postop Activity: Ambulating Independently Objective Vital Sign- Last 8 Hours Date Time Temp Pulse Resp B/P Pulse Ox O2 Delivery O2 Flow Rate FiO2 06/13/16 04:40 36.8 82 18 146/85 97 Room Air Intake and Output- Last 8 Hour 06/13/16 Cumulative From/Thru 07:00 06/10/16 16:42 - 06/13/16 06:20 Intake Total 600 ml 4194 ml Output Total 380 ml 1735 ml Balance 220 ml 2459 ml Intake Oral 600 ml 1620 ml IV Total 2574 ml Output Urine Total 350 ml 1660 ml Drainage Total 30 ml 75 ml # Voids 1 1 # Bowel Movements 0 0 General: Alert Lungs: Clear to Auscultation Heart: Exam Unremarkable Abdomen: Benign SURGICAL WOUND : Wound General Appearence: Sutures, Intact, No Erythema, No Discharge, No Inflammatory Changes Dressing & Drainage Status: Intact Wound Drainage Type: KAITLYNN Drain #1 (30 mL out last 24 hrs. Serosanguineous fluid) Catheters: None Result Diagram: 06/13/16 0455 06/10/16 1723 Assessment & Plan Impression Primary diagnosis: Gangrenous appendicitis. POD #3. Still diaphoretic, leukocytosis trending down. Afebrile. Other chronic conditions: 1. Hcv-etdpfcq-cbhdqtsqi diabetes mellitus 2. Tobacco dependance Plan 1. Advance to general diet as tolerated 2. MiraLAX 3. CBC daily 4. Continue Zosyn Q8 hrs day day 3. Problems: VTE Prophylaxis: SCDs Resuscitation Status: CPR: Attempt Resuscitation Attending Statement: I agree with Dr. Mae's assessment and plan. Continue abx. LATOYA MAE DO June 13, 2016 07:49 David Escudero MD June 18, 2016 12:05
[2016-06-13] MEDS: Polyethylene Glycol (PEG) 17 Gm Powder PO SCH (08:47)
--- NOTE | 2016-06-13 10:49 | PATH ---
SURGICAL PATHOLOGY Attending Physician:David Escudero M.D. CASE STATUS: Signed Out PATIENT NAME: ANTONIETA MADDEN PID: [id number] : 1955 DATE COLLECTED:06/10/2016 00:00 SPECIMEN: Appendix CLINICAL HISTORY: 1). APPENDIX FINAL DIAGNOSIS: 1.APPENDIX: SEVERE ACUTE NECROTIZING APPENDICITIS. ICD10 CODE K35.80 GROSS DESCRIPTION: Specimen received in formalin, labeled " , Antonieta" and "appendix", specimen consists of three pieces of recognizable appendectomy specimen together measuring 8.5 cm in length by 0.8 cm in diameter, partially surrounded by yellow mesoappendix fibrofatty tissue measuring 3.8 x 2.0 x 0.7 cm. Serosal surface is covered by a white irregular exudate. The wall measures 0.3 to 0.4 cm in maximum thickness, and the lumen measures 0.1 to 0.3 cm in diameter. It is filled with a light delgadillo serous fluid. Due to the nature of the specimen, the perforation cannot be grossly appreciated. Behavioral Health Clinician sections submitted as follows: Cassette #1-tip of appendix, bisected, and the resection margin; cassette B-field representative/health education section from the appendix. ([id number]) MICRO DESCRIPTION: See diagnosis. ICD-9 CODES: CPT CODES: 1: 55751 Electronically Signed Out Randell Gomez MD [facility] [address], [place] [address] Technical component performed at [facility], [address] [place] [address] Ave[address], [place], [address]
[2016-06-13 12:58] VITALS: BP 131/81; PULSE 78; RESP 18; O2SAT 96
[2016-06-13] MEDS: HYDROmorphone 1 mg/mL Inj IVPUSH PRN (16:22)
[2016-06-13 19:38] VITALS: BP 160/88; PULSE 79; RESP 20; O2SAT 97
[2016-06-14] MEDS: Piperacillin-Tazo 3.375 Gm Inj 3.375 GM in Dextrose 5% Minibag Plus 50 ML IV SCH ×3 (00:33→19:24)
[2016-06-14] MEDS: Lactated Ringer's 1,000 ML IV SCH (02:07)
[2016-06-14] MEDS: HYDROcodone-APAP 5-325 mg Tablet PO PRN ×6 (02:34→23:07)
[2016-06-14 05:12] VITALS: BP 137/84; PULSE 73; RESP 20; O2SAT 95
[2016-06-14 05:19] LABS: BASOPHILS % (AUTO) 0.9 % (0-3); EOSINOPHILS % (AUTO) 0.8 % (0-5); MONOCYTES % (AUTO) 7.5 % (4-12); Mean Corpuscular Hemoglobin 31.2 pg (27.0-35.0); Mean Corpuscular Volume 92.6 fL (81-100); Platelet Count 255 bil/L (150-400)
[2016-06-14] MEDS ORDERED: Glucose 40% Oral Gel 15 Gm Tube PO PRN (08:40)
[2016-06-14] MEDS: Polyethylene Glycol (PEG) 17 Gm Powder PO SCH (10:11)
--- NOTE | 2016-06-14 11:54 | PCM.PNSURG ---
Subjective Date of Service: June 14, 2016 Date of Service: June 14, 2016 Visit Information: Reason for Visit Acute Appendicitis/Sepsis Surgery/Surgery Date Post-Op Day # Date of Admission: June 10, 2016 at 22:36 Hospital Day # Subjective: Attending Physician: Dr. Escudero. Resident, Physician Dr. Mae Patient states that his pain is well controlled, he has noticed a significant decrease in his diaphoresis. He is ambulating independently without difficulty. Reports extensive flatus though no BM as of yet. Denies N/V, SOB or CP. Denies Abdominal pain. Postop General: No Complaints Gastrointestinal: Good Appetite, Tolerating Oral Feedings, No N/V, Passing Flatus Pain Management: IV Push Postop Activity: Ambulating Independently Objective Vital Sign- Last 8 Hours Date Time Temp Pulse Resp B/P Pulse Ox O2 Delivery O2 Flow Rate FiO2 06/14/16 05:12 36.8 73 20 137/84 95 Room Air Intake and Output- Last 8 Hour 06/14/16 Cumulative From/Thru 07:00 06/10/16 16:42 - 06/14/16 06:26 Intake Total 712 ml 5996 ml Output Total 500 ml 3045 ml Balance 212 ml 2951 ml Intake Oral 500 ml 3210 ml IV Total 212 ml 2786 ml Output Urine Total 500 ml 2960 ml Drainage Total 0 ml 85 ml # Voids 1 # Bowel Movements 0 General: Alert, Oriented X3, Cooperative, No Acute Distress Lungs: Clear to Auscultation, Normal Air Movement Heart: Exam Unremarkable, Regular Rate/Rhythm Abdomen: Benign, Soft, Non-tender SURGICAL WOUND : Wound General Appearence: Sutures, Intact, No Erythema, No Discharge, No Inflammatory Changes Dressing & Drainage Status: Intact Wound Drainage Type: KAITLYNN Drain #1 (~30mL out last 24 hrs, serosanguinous fluid with red tinge) Result Diagram: 06/14/16 0453 06/10/16 1723 Assessment & Plan Impression Primary diagnosis: Gangrenous appendicitis. POD #4. Diaphoresis improving, slight uptick in leukocytosis, remains afebrile. Other chronic conditions: 1. Czf-gsmmobj-fpnznrklk diabetes mellitus 2. Tobacco dependance Plan 1. Advance to general diet as tolerated 2. Transition to oral pain medications 2. MiraLAX 3. CBC daily 4. Will consider additional imaging tomorrow 4. Continue Zosyn Q8 hrs day day 3. 5. Continue to encourage ambulation 6. Low dose correctional scale insulin Problems: VTE Prophylaxis: SCDs Resuscitation Status: CPR: Attempt Resuscitation Attending Statement: I agree with Dr. Mae's assessment and plan. LATOYA MAE DO June 14, 2016 08:29 David Escudero MD June 18, 2016 11:59
[2016-06-14] MEDS: Insulin LISPRO 300 Unit/3 mL Inj SUBQ SCH ×3 (12:00→22:00)
[2016-06-14 13:58] VITALS: BP 147/91; PULSE 82; RESP 20; O2SAT 97
[2016-06-14 20:35] VITALS: BP 152/90; PULSE 89; RESP 20; O2SAT 94
[2016-06-15] MEDS: Lactated Ringer's 1,000 ML IV SCH (02:07)
[2016-06-15] MEDS: Piperacillin-Tazo 3.375 Gm Inj 3.375 GM in Dextrose 5% Minibag Plus 50 ML IV SCH ×3 (02:28→18:32)
[2016-06-15 04:29] VITALS: BP 160/79; PULSE 83; RESP 18; O2SAT 95
[2016-06-15 05:20] LABS: Mean Corpuscular Hemoglobin 31.3 pg (27.0-35.0); Mean Corpuscular Volume 92.2 fL (81-100); Platelet Count 296 bil/L (150-400)
[2016-06-15 05:43] LABS: BASOPHILS % (AUTO) 2.8 % (0-3); EOSINOPHILS % (AUTO) 1.2 % (0-5); MONOCYTES % (AUTO) 6.4 % (4-12); NEUTROPHILS % (AUTO) 76.1 % (40-74)
--- NOTE | 2016-06-15 07:15 | PCM.PNSURG ---
Subjective Visit Information: Reason for Visit Acute Appendicitis/Sepsis Surgery/Surgery Date Post-Op Day # Date of Admission: June 10, 2016 at 22:36 Hospital Day # Subjective: pt states feeling better, passing flatus, but no BM yet (been 5-6 days), T max 37.7, on regular diet Objective Objective Awake in bed Abd: KAITLYNN in place --> serous fluid, mildly distended Vital Sign- Last 8 Hours Date Time Temp Pulse Resp B/P Pulse Ox O2 Delivery O2 Flow Rate FiO2 06/15/16 04:29 37.0 83 18 160/79 95 Room Air Intake and Output- Last 8 Hour 06/15/16 Cumulative From/Thru 07:00 06/10/16 16:42 - 06/15/16 06:45 Intake Total 496 ml 7132 ml Output Total 965 ml 4685 ml Balance -469 ml 2447 ml Intake Oral 400 ml 4250 ml IV Total 96 ml 2882 ml Output Urine Total 950 ml 4585 ml Drainage Total 15 ml 100 ml # Voids 1 # Bowel Movements 0 Result Diagram: 06/15/16 0455 06/15/16 0455 Assessment & Plan Impression s/p lap appy for gangrenous appendicitis Elevated WBC Problems: Plan Will order a CT scan today Continue IV abx VTE Prophylaxis: SCDs Resuscitation Status: CPR: Attempt Resuscitation David Escudero MD June 15, 2016 07:15
[2016-06-15] MEDS: Insulin LISPRO 300 Unit/3 mL Inj SUBQ SCH ×4 (08:00→21:59)
[2016-06-15] MEDS: HYDROcodone-APAP 5-325 mg Tablet PO PRN ×2 (08:27→14:04)
[2016-06-15] MEDS: Polyethylene Glycol (PEG) 17 Gm Powder PO SCH (10:45)
--- NOTE | 2016-06-15 11:10 | DRSVH ---
PROCEDURE: CT ABDOMEN AND PELVIS WITH CONTRAST ([id number]) INDICATIONS: s/p appy, r/o abscess TECHNIQUE: After the administration of oral and intravenous contrast, 5 mm thick sections acquired from the diap hragms to the symphysis. 5 mm thick coronal and sagittal reformats were performed. For radiation do se reduction, the following was used: automated exposure control, adjustment of mA and/or kV accordi ng to patient size. COMPARISON: None. FINDINGS: Image quality: Excellent. ABDOMEN: Lung bases: There is mild atelectasis at the right lung base. The left lung base is clear. Heart is n ormal size. Solid organs: Liver and spleen are normal in size and overall enhancement. A probable hepatic dano ioma is present at the inferior aspect of the right hepatic lobe (series 2, images 43 and 44). Gallb ladder is unremarkable. Biliary system is non-dilated. Pancreas enhances normally. No adrenal nodu les. Kidneys are normal in size and enhancement, without hydronephrosis. Subcentimeter cortical cys tic lesions are present within the left kidney which likely represent small renal cysts but are too s mall to fully characterize. Peritoneum and bowel: Stomach, small bowel, and colon loops are normal in caliber and wall thickness . A surgical drain is present in the right lower quadrant which extends into the pelvis. Posterior to this drain is a low-density, rim-enhancing fluid collection which measures 2.9 x 2.9 x 6.7 cm. A sma ll amount of gas is present at the superior aspect of this fluid collection. Nodes and vessels: No retroperitoneal or mesenteric adenopathy. Aorta and inferior vena cava are no rmal in caliber. Miscellaneous: No ventral hernias. PELVIS: Genitourinary: Bladder wall thickness is normal. Miscellaneous: No inguinal adenopathy. There small bilateral fat-containing inguinal hernias. Bones: No suspicious bony lesions. No vertebral body compression fractures. IMPRESSION: 1. Gas and fluid containing rim-enhancing fluid collection within the right lower quadrant which like ly represents a postoperative abscess after recent appendectomy. This is likely amenable to CT-guided percutaneous drainage. This finding was discussed with Dr. Escudero at 11:05 AM on 06/15/16. Dictated by: Arlen Goddard M.D. on 06/15/2016 at 11:02 Approved by: Arlen Goddard M.D. on 06/15/2016 at 11:09
[2016-06-15 14:36] VITALS: BP 154/95; PULSE 92; RESP 18; O2SAT 98
[2016-06-15] MEDS: metroNIDAZOLE Inj 500 MG in IV Premix 1 EACH IV SCH (17:12)
[2016-06-15 22:00] VITALS: BP 169/90; PULSE 72; RESP 18; O2SAT 98
[2016-06-16] MEDS: metroNIDAZOLE Inj 500 MG in IV Premix 1 EACH IV SCH ×3 (00:32→16:38)
[2016-06-16] MEDS: Piperacillin-Tazo 3.375 Gm Inj 3.375 GM in Dextrose 5% Minibag Plus 50 ML IV SCH ×3 (01:50→18:00)
[2016-06-16] MEDS: Lactated Ringer's 1,000 ML IV SCH (02:07)
[2016-06-16 06:00] VITALS: BP 159/80; PULSE 74; RESP 20; O2SAT 100
[2016-06-16] MEDS: Polyethylene Glycol (PEG) 17 Gm Powder PO SCH (08:00)
[2016-06-16] MEDS: Insulin LISPRO 300 Unit/3 mL Inj SUBQ SCH ×4 (08:00→22:00)
[2016-06-16 09:14] VITALS: BP 158/88; PULSE 73; RESP 20; O2SAT 96
--- NOTE | 2016-06-16 09:52 | PCM.PNSURG ---
Subjective Visit Information: Reason for Visit Acute Appendicitis/Sepsis Surgery/Surgery Date Post-Op Day # Date of Admission: June 10, 2016 at 22:36 Hospital Day # Subjective: has had 3 BM's after the suppository, hasn't needed pain med, no n/v on full liquid diet Objective Objective Awake in bed Abd: soft, no major tenderness on exam, KAITLYNN in place --> serous Vital Sign- Last 8 Hours Date Time Temp Pulse Resp B/P Pulse Ox O2 Delivery O2 Flow Rate FiO2 06/16/16 09:14 36.6 73 20 158/88 96 Room Air 06/16/16 06:00 36.3 74 20 159/80 100 Room Air Intake and Output- Last 8 Hour 06/16/16 Cumulative From/Thru 07:00 06/10/16 16:42 - 06/16/16 06:59 Intake Total 827 ml 8879 ml Output Total 530 ml 5795 ml Balance 297 ml 3084 ml Intake Oral 600 ml 5770 ml IV Total 227 ml 3109 ml Output Urine Total 525 ml 5685 ml Drainage Total 5 ml 110 ml # Voids 2 3 # Bowel Movements 2 2 Result Diagram: 06/15/16 0455 06/15/16 0455 Assessment & Plan Impression s/p lap appendectomy for gangrenous appendicitis Postop abscess RLQ Problems: Plan Continue zosyn and flagyl CBC in AM Anticipate CT guided drainage tomorrow by IR VTE Prophylaxis: SCDs Resuscitation Status: CPR: Attempt Resuscitation David Escudero MD June 16, 2016 09:52
[2016-06-16] MEDS: HYDROcodone-APAP 5-325 mg Tablet PO PRN ×2 (13:17→18:04)
[2016-06-16 15:49] VITALS: BP 145/87; PULSE 76; RESP 17; O2SAT 96
[2016-06-16 20:55] VITALS: BP 180/92; PULSE 78; RESP 18; O2SAT 100
[2016-06-16 22:30] VITALS: BP 160/82; PULSE 65
[2016-06-17] VITALS (8 sets, daily range): BP systolic 142–167; BP diastolic 74–91; PULSE 63–78; RESP 16–20; O2SAT 97–100
[2016-06-17] MEDS: Piperacillin-Tazo 3.375 Gm Inj 3.375 GM in Dextrose 5% Minibag Plus 50 ML IV SCH ×3 (01:30→17:06)
[2016-06-17] MEDS: metroNIDAZOLE Inj 500 MG in IV Premix 1 EACH IV SCH ×3 (01:30→16:28)
[2016-06-17] MEDS: Lactated Ringer's 1,000 ML IV SCH (02:07)
[2016-06-17 05:50] LABS: BASOPHILS % (AUTO) 0.6 % (0-3); EOSINOPHILS % (AUTO) 1.4 % (0-5); MONOCYTES % (AUTO) 7.3 % (4-12); Mean Corpuscular Hemoglobin 31.5 pg (27.0-35.0); Mean Corpuscular Volume 92.2 fL (81-100); NEUTROPHILS % (AUTO) 75.3 % (40-74); Platelet Count 376 bil/L (150-400)
[2016-06-17 06:36] LABS: INR 0.96 ratio
[2016-06-17] MEDS: HYDROcodone-APAP 5-325 mg Tablet PO PRN ×3 (07:49→23:49)
[2016-06-17] MEDS: Insulin LISPRO 300 Unit/3 mL Inj SUBQ SCH ×4 (08:00→22:00)
[2016-06-17] MEDS: Polyethylene Glycol (PEG) 17 Gm Powder PO SCH (08:30)
--- NOTE | 2016-06-17 10:19 | PCM.PNSURG ---
Subjective Date of Service: June 17, 2016 Date of Service: June 17, 2016 Visit Information: Reason for Visit Acute Appendicitis/Sepsis Surgery/Surgery Date Post-Op Day # Date of Admission: June 10, 2016 at 22:36 Hospital Day # Subjective: Feeling relatively well, denies fever or chills, abdominal pain. States still is tender by KAITLYNN insertion site. His ambulatory able to complete multiple laps around first for Hospital weighing. Passing stool. Tolerating full liquid diet well would like to advance diet. White count continues to trend up. Scheduled for interventional radiology abscess drain today. Objective Vital Sign- Last 8 Hours Date Time Temp Pulse Resp B/P Pulse Ox O2 Delivery O2 Flow Rate FiO2 06/17/16 07:54 36.4 73 20 151/91 100 Room Air 06/17/16 06:31 36.8 78 20 164/89 99 Room Air Intake and Output- Last 8 Hour 06/17/16 Cumulative From/Thru 06:59 06/10/16 16:42 - 06/17/16 01:18 Intake Total 9889 ml Output Total 6500 ml Balance 3389 ml Intake Oral 6583 ml IV Total 3306 ml Output Urine Total 6385 ml Drainage Total 115 ml # Voids 3 # Bowel Movements 3 General: Alert, Oriented X3, Cooperative, No Acute Distress Lungs: Clear to Auscultation, Normal Air Movement Heart: Exam Unremarkable, Regular Rate/Rhythm Abdomen: Appropriately tender (right lower quadrant KAITLYNN insertion site) SURGICAL WOUND : Wound General Appearence: No Erythema, No Discharge, No Inflammatory Changes Dressing & Drainage Status: Intact Wound Drainage Type: KAITLYNN Drain #1 (25 mL serosanguineous drainage reported over the last 24 hours) Result Diagram: 06/17/16 0523 06/15/16 0455 Diagnostics: . CT ABDOMEN AND PELVIS WITH CONTRAST IMPRESSION: 1. Severe acute appendicitis, possibly ruptured given the surrounding fluid. Findings discussed with Dr. Lux on 06.10.16 at 1910 hrs. 2. Mildly distended small bowel loops, consistent with ileus. Dictated by: Zoie Jarrell M.D. on 06/10/2016 at 19:10 CT ABDOMEN AND PELVIS WITH CONTRAST IMPRESSION: 1. Gas and fluid containing rim-enhancing fluid collection within the right lower quadrant which likely represents a postoperative abscess after recent appendectomy. This is likely amenable to CT-guided percutaneous drainage. Dictated by: Arlen Goddard M.D. on 06/15/2016 at 11:02 Assessment & Plan Impression Assessment & Plan: 1. Status post left prostatic appendectomy secondary to gangrenous appendicitis postoperative day 8 - Repeat CT yesterday showed fluid collection in the right upper quadrant - CT-guided percutaneous drainage successfully placed today - Continue Zosyn and Flagyl - Continue to trend CBC - Advance diet as tolerated 2. Prediabetes - A1c 6.4 - Continue correctional scale insulin Problems: VTE Prophylaxis: SCDs Resuscitation Status: CPR: Attempt Resuscitation Attending Statement: I agree with Dr. Alex's assessment and plan. LATOYA ALEX DO June 17, 2016 10:19 David Escudero MD June 24, 2016 06:24 LATOYA ALEX DO June 17, 2016 10:19
[2016-06-17] MEDS ORDERED: fentaNYL PF 50 mCg/mL 5 mL Inj IV PRN (12:00)
--- NOTE | 2016-06-17 15:49 | DRSVH ---
PROCEDURE: CT ABCESS DRAIN PERITONEAL INDICATIONS: abscess COMPARISON: [facility], CT, CT ABD PELVIS W CON, 06/15/2016, 10:35. TECHNIQUE: 1. Conscious sedation for [address]-guided right lower quadrant drain placement. The risks and benefits of the procedure were discussed with the patient, consent was obtained, and pl aced on the chart. Conscious sedation and cardiorespiratory monitoring was provided by skilled nursin g staff. 1% lidocaine was used to anesthetize the skin over the area of interest. Under CT guidance, an 18 gauge needle was advanced into the right lower quadrant fluid collection. An 035 wire was advan ana through the outer stylet of the needle. The needle was removed, and an 8 Mauritian locking pigtail d rain was advanced into the fluid collection. No fluid was able to be aspirated. The drain was secured in place at the skin with adhesive bandage. FINDINGS: Initial CT demonstrates a anterior right upper quadrant fluid collection. Final CT image de monstrates appropriate placement locking pigtail drain within this fluid collection. IMPRESSION: 1. Status post CT-guided drain placement for right upper quadrant fluid collection. Dictated by: Flory Mooney M.D. on 06/17/2016 at 15:43 Approved by: Flory Mooney M.D. on 06/17/2016 at 15:48
[2016-06-17] MEDS ORDERED: Ondansetron 8 mg ODT Tablet PO PRN (18:55)
[2016-06-18 00:15] VITALS: BP 168/84; PULSE 69; RESP 16; O2SAT 98
[2016-06-18] MEDS: metroNIDAZOLE Inj 500 MG in IV Premix 1 EACH IV SCH ×3 (00:46→16:08)
[2016-06-18] MEDS: Piperacillin-Tazo 3.375 Gm Inj 3.375 GM in Dextrose 5% Minibag Plus 50 ML IV SCH ×3 (02:04→16:56)
[2016-06-18] MEDS: Lactated Ringer's 1,000 ML IV SCH (02:07)
[2016-06-18 04:59] VITALS: BP 156/86; PULSE 71; RESP 17; O2SAT 96
[2016-06-18 05:34] LABS: BASOPHILS % (AUTO) 0.3 % (0-3); EOSINOPHILS % (AUTO) 1.4 % (0-5); MONOCYTES % (AUTO) 6.9 % (4-12); Mean Corpuscular Hemoglobin 31.5 pg (27.0-35.0); Platelet Count 380 bil/L (150-400)
[2016-06-18 05:50] LABS: Magnesium 2.3 mg/dL (1.6-2.6)
--- NOTE | 2016-06-18 07:53 | PCM.PNSURG ---
Subjective Date of Service: June 18, 2016 Date of Service: June 18, 2016 Visit Information: Reason for Visit Acute Appendicitis/Sepsis Surgery/Surgery Date Post-Op Day # 9 Date of Admission: June 10, 2016 at 22:36 Hospital Day # 9 Subjective: No significant events reported overnight. Yesterday Pt received locking pigtail drain to RUQ peritoneal abscess/fluid collection. Reports overall he feels much better. He is ambulating in the halls, completing 10 laps around the floor yesterday. He is passing stool. Still reports some RLQ tenderness. Denies CP, fever/chills. Attempted to eat a peanut butter sandwich yesterday, became nauseous and could not keep it down. Leukocytosis continues to trend up 20.5 today from 15.5 yesterday. Remains A-febrile. Remains on IV antibiotics Objective Vital Sign- Last 8 Hours Date Time Temp Pulse Resp B/P Pulse Ox O2 Delivery O2 Flow Rate FiO2 06/18/16 04:59 36.7 71 17 156/86 96 Room Air 06/18/16 00:15 36.8 69 16 168/84 98 Room Air Intake and Output- Last 8 Hour 06/18/16 Cumulative From/Thru 07:00 06/10/16 16:42 - 06/18/16 06:45 Intake Total 1425 ml 95923 ml Output Total 950 ml 8828 ml Balance 475 ml 4538 ml Intake Oral 1200 ml 9313 ml IV Total 225 ml 4053 ml Output Urine Total 950 ml 8685 ml Drainage Total 0 ml 143 ml # Voids 5 # Bowel Movements 0 3 General: Alert, Oriented X3, Cooperative, No Acute Distress Neck: Supple, Full Range of Motion Lungs: Clear to Auscultation, Normal Air Movement Heart: Exam Unremarkable, Regular Rate/Rhythm Abdomen: Benign, Appropriately tender (RLQ and RUQ) SURGICAL WOUND : Wound Location/Description KAITLYNN and cook drain insertion sites are both non erythematous, No swelling or warmth to palpation though mildly tender to palpation. Wound General Appearence: Sutures Wound Drainage Type: KAITLYNN Drain #1 (minimal output reported by nursing), Other (Cook Drain, minimal output overnight - at time of exam there was a approximatly 150cc of brown liquid in drain bag) Result Diagram: 06/18/16 0458 06/18/16 0458 Diagnostics: . CT ABDOMEN AND PELVIS WITH CONTRAST IMPRESSION: 1. Severe acute appendicitis, possibly ruptured given the surrounding fluid. Findings discussed with Dr. Lux on ..17 at 1910 hrs. 2. Mildly distended small bowel loops, consistent with ileus. Dictated by: Zoie Jarrell M.D. on 06/10/2016 at 19:10 CT ABDOMEN AND PELVIS WITH CONTRAST IMPRESSION: 1. Gas and fluid containing rim-enhancing fluid collection within the right lower quadrant which likely represents a postoperative abscess after recent appendectomy. This is likely amenable to CT-guided percutaneous drainage. Dictated by: Arlen Goddard M.D. on 06/15/2016 at 11:02 CT ABCESS DRAIN PERITONEAL FINDINGS: Initial CT demonstrates a anterior right upper quadrant fluid collection. Final CT image demonstrates appropriate placement locking pigtail drain within this fluid collection. IMPRESSION: 1. Status post CT-guided drain placement for right upper quadrant fluid collection. Dictated by: Flory Mooney M.D. on 06/17/2016 at 15:43 Assessment & Plan Impression Assessment & Plan: 1. Status post laproscopic appendectomy secondary to gangrenous appendicitis postoperative day 9 - Repeat CT 06/16/2016 showed fluid collection in the right lower quadrant - CT-guided percutaneous drainage successfully placed yesterday - Cultures and sensitivities of fluid ordered and pending - Continue Zosyn and Flagyl - Once leukocytosis begins to trend down, and cultures are back will transition to oral antibiotics - Continue to trend CBC - Advance diet as tolerated 2. Prediabetes - A1c 6.4 - Continue correctional scale insulin Problems: VTE Prophylaxis: SCDs Resuscitation Status: CPR: Attempt Resuscitation Attending Statement: I agree with Dr. Alex's assessment and plan. LATOYA ALEX DO June 18, 2016 07:53 David Escudero MD June 24, 2016 06:22
[2016-06-18] MEDS: Insulin LISPRO 300 Unit/3 mL Inj SUBQ SCH ×4 (08:00→22:00)
[2016-06-18] MEDS: Polyethylene Glycol (PEG) 17 Gm Powder PO SCH (08:30)
[2016-06-18] MEDS: Heparin 5,000 Unit/mL Inj SUBQ SCH ×2 (09:22→17:38)
[2016-06-18 15:20] VITALS: BP 153/78; PULSE 65; RESP 18; O2SAT 96
[2016-06-18 20:06] VITALS: BP 153/82; PULSE 66; RESP 16; O2SAT 95
[2016-06-19] MEDS: Heparin 5,000 Unit/mL Inj SUBQ SCH ×2 (00:34→09:50)
[2016-06-19] MEDS: metroNIDAZOLE Inj 500 MG in IV Premix 1 EACH IV SCH ×3 (00:34→16:22)
[2016-06-19] MEDS: Piperacillin-Tazo 3.375 Gm Inj 3.375 GM in Dextrose 5% Minibag Plus 50 ML IV SCH ×2 (01:20→10:49)
[2016-06-19] MEDS: Lactated Ringer's 1,000 ML IV SCH (02:07)
[2016-06-19 05:30] VITALS: BP 148/74; PULSE 68; RESP 16; O2SAT 97
[2016-06-19 07:26] LABS: BASOPHILS % (AUTO) 0.3 % (0-3); MONOCYTES % (AUTO) 5.6 % (4-12); NEUTROPHILS % (AUTO) 81.9 % (40-74); Platelet Count 391 bil/L (150-400)
[2016-06-19] MEDS: Polyethylene Glycol (PEG) 17 Gm Powder PO SCH (08:30)
[2016-06-19] MEDS: Insulin LISPRO 300 Unit/3 mL Inj SUBQ SCH ×2 (09:52→13:13)
[2016-06-19 10:50] VITALS: BP 109/73; PULSE 76; RESP 16; O2SAT 97
--- NOTE | 2016-06-19 13:21 | PCM.PNSURG ---
Subjective Date of Service: June 19, 2016 Visit Information: Reason for Visit Acute Appendicitis/Sepsis Surgery/Surgery Date Post-Op Day #10 Date of Admission: June 10, 2016 at 22:36 Hospital Day # Subjective: Eating a few solid foods with equivocal appetite, mild nausea yesterday with vomiting. No nausea or vomiting today. Having bowel movements. Ambulatory in the hallway without assistance. No pain, no need for pain medications. Postop General: No Complaints Gastrointestinal: Tolerating Oral Feedings, No N/V, Normal Bowel Movement Pain Management: No or Minimal Pain Postop Activity: Ambulating Independently Objective Vital Sign- Last 8 Hours Date Time Temp Pulse Resp B/P Pulse Ox O2 Delivery O2 Flow Rate FiO2 06/19/16 10:50 36.8 76 16 109/73 97 Room Air 06/19/16 05:30 36.4 68 16 148/74 97 Room Air Intake and Output- Last 8 Hour 06/19/16 Cumulative From/Thru 07:00 06/10/16 16:42 - 06/19/16 06:11 Intake Total 976 ml 67489 ml Output Total 1100 ml 54365 ml Balance -124 ml 4559 ml Intake Oral 750 ml 66991 ml IV Total 226 ml 4415 ml Output Urine Total 1100 ml 09761 ml Emesis 200 ml Drainage Total 0 ml 234 ml # Voids 5 # Bowel Movements 4 General: Alert, Cooperative, No Acute Distress Lungs: Clear to Auscultation Heart: Regular Rate/Rhythm Abdomen: Soft, Non-distended SURGICAL WOUND : Wound General Appearence: Steri Strips, Sutures, Intact, Well Approximated, No Erythema, No Discharge Wound Drainage Type: KAITLYNN Drain #1 (scant serous drainage), Other ( percutaneous right lower quadrant drain with dark delgadillo purulent drainage, minimal output over the last 8 hours.) Result Diagram: 06/19/16 0640 06/18/16 0458 Lab & Micro Results: Leukocytosis trending down Assessment & Plan Impression Primary diagnosis: 1. Gangrenous appendicitis. POD #10 with leukocytosis that is trending down , otherwise stable. 2. Postsurgical right lower quadrant abscess. Percutaneous drain placed by IR is functioning well. Other chronic conditions: 1. Fqt-mwusidh-gvqdlqgfr diabetes mellitus 2. Daily cigarette smoker Problems: Plan 1. KAITLYNN drain will be removed 2. The patient will be discharged to home on oral levofloxacin and Flagyl. 3. He will return to clinic in 1 week. 4. He is cautioned to call or return for temperature greater than 101 that does not resolve with oral Tylenol, increasing abdominal pain, or increasing nausea or vomiting. He will check his fingerstick glucose at home frequently and notify his primary care physician if this is uncontrolled with oral metformin. Pain Management: [place] VTE Prophylaxis: SCDs Resuscitation Status: CPR: Attempt Resuscitation copies to: Ayden Kirkland DO Renco, Fred H PA-C June 19, 2016 13:21
--- NOTE | 2016-06-19 13:27 | PCM.DISURG ---
Surgical Discharge Instruction Date of Service June 19, 2016 Dates of Hospitalization Date of Hospital Admission June 10, 2016 at 22:36 Providers Admitting Physician: David Escudero MD Primary Care Physician: Ayden Kirkland DO Attending Physician: David Escudero MD Discharge Diagnosis Discharge Diagnosis Primary diagnosis: 1. Gangrenous appendicitis. 2. Postsurgical right lower quadrant abscess. Other chronic conditions: 1. Ddj-xfmixeh-ikoudmygb diabetes mellitus 2. Daily cigarette smoker Post Operative diagnosis Same Diet Discharge Diet: No restrictions Activity Discharge Activity-General: Balance rest and activity, Activity as pain allows , No driving while taking narcotic Dressing and Incisional Care Dressing Care: Allow Steri Stripes to fall off Hygiene: May shower Additional Instructions Discharge Instructions Flush drain with 10 mL of saline 2-3 times a day. Follow Up Plan Mid-level Provider (F9): James Marie PA-C Follow-up appointment: Weeks (1) Call your provider for: Fever (greater than 101 that does not resolve with oral Tylenol), Chills, Increasing abdominal pain, Nausea, Vomiting, Wound redness, Increasing wound pain, Warmth to touch, Discharge @ incision, pus discharge James Marie PA-C June 19, 2016 13:27
[2016-06-19] MEDS ORDERED: HYDR-4003 PO (13:30)
[2016-06-19] MEDS ORDERED: METR500T PO (13:30)
[2016-06-19] MEDS ORDERED: LEVO500T79 PO (13:30)
--- NOTE | 2016-06-19 13:36 | PCM.DC.SUR ---
Discharge Summary Date of Service: June 19, 2016 Date of Hospital Admission: June 10, 2016 at 22:36 Date of Operation(s): 06/10/2016 Date of Discharge: 06/19/2016 Diagnosis at Time of Discharge Primary diagnosis: 1. Gangrenous appendicitis. 2. Postsurgical right lower quadrant abscess. Other chronic conditions: 1. Kzj-inhusbk-ejgrxrjek diabetes mellitus 2. Daily cigarette smoker Problems: Operation Laparoscopic appendectomy Brief History and Physical: The patient is a 60-year-old male who presented with a 4-day history of abdominal pain and an elevated white blood count, and a CT scan finding was consistent with acute appendicitis with possible rupture. Consultants: None Hospital Course: The patient was admitted and underwent the above-mentioned operation without complication. Postsurgically his recovery was fairly uneventful in that bowel function returned in a timely fashion and diet was able to be advanced without incident. He had a persistent leukocytosis eventually leading to repeat CT scan which demonstrated a right lower quadrant abscess. This was drained percutaneously by interventional radiology. Following this White blood cell count began resolving and the patient was able to be discharged on his ninth postsurgical day. At the time of discharge the patient was afebrile, he was eating solid foods with minimal nausea and no vomiting, his bowels were working , his wounds appeared to be healing, and he was tolerating pain on minimal oral analgesic. Pathology: FINAL DIAGNOSIS: 1.APPENDIX: SEVERE ACUTE NECROTIZING APPENDICITIS. Disposition: The patient was discharged to home on his ninth postsurgical day on oral Levaquin and Flagyl with a percutaneous drain in place. He was instructed on drain care prior to discharge from the hospital. The patient was instructed to check fingerstick blood sugars frequently and notify his primary care physician if he was unable to control his blood sugars with his normal oral metformin. Follow-up Plan: He will follow-up in the office in one week. Aspirin (Aspirin) 81 Mg Tablet 81 MG PO DAILY (Reported) Cyclobenzaprine (Cyclobenzaprine) 10 Mg Tablet 10 MG PO DAILY PRN PRN For Spasm (Reported) Hydrocodone-Acetaminophen 5-325 mg (Hydrocodone-Acetaminophen 5-325 mg) 1 Each Tablet 1-2 TABLET PO Q4H PRN PRN For Pain Levofloxacin (Levofloxacin) 500 Mg Tablet 500 MG PO DAILY Lisinopril (Lisinopril) 5 Mg Tablet 5 MG PO HS (Reported) Metformin (Metformin) 850 Mg Tablet 850 MG PO BID (Reported) Metronidazole (Flagyl) 500 Mg Tablet 500 MG PO Q8H Multivitamin (Once Daily) 1 Each Tablet 1 EACH PO DAILY (Reported) Sildenafil Citrate (Sildenafil) 20 Mg Tablet 20 MG PO prn PRN PRN for sexual activity (Reported) Simvastatin (Simvastatin) 40 Mg Tablet 40 MG PO HS (Reported) copies to: Ayden Kirkland DO Renco, Fred H PA-C June 19, 2016 13:36
[2016-06-19 15:00] VITALS: BP 143/79; PULSE 68; RESP 18; O2SAT 96
== END 2016-06-19 17:56 | disposition home or self-care (01) | DRG 340 ==
LOC: SED 16:31 → SAS 20:03 → OSC 22:36
PROVIDERS: ADMIT Surgery; ATTEND Surgery
PROC: 0DTJ4ZZ Resection of Appendix, Percutaneous Endoscopic Approach (ICD-10-PCS; principal; 2016-06-10 19:19)
PROC: 0W9G3ZZ Drainage of Peritoneal Cavity, Percutaneous Approach (ICD-10-PCS; 2016-06-17)
DX: K35.3 Acute appendicitis with localized peritonitis (principal); E11.9 Type 2 diabetes mellitus without complications; E78.5 Hyperlipidemia, unspecified; F17.290 Nicotine dependence, other tobacco product, uncomplicated; F12.90 Cannabis use, unspecified, uncomplicated; Z79.84 Long term (current) use of oral hypoglycemic drugs